=== PATIENT | female | born 1935 | race Caucasian/White ===

== ENCOUNTER → 2019-10-22 17:05 | Outpatient (BNVA) | payer MEDICARE, OTHER, SELFPAY | PROVIDERS: Family Provider Nurse Practitioner Family; PCP Nurse Practitioner Family; Visit Provider Nurse Practitioner Family | DX: N39.0 Urinary tract infection, site not specified (principal) | CPT/HCPCS: 81000 ==

== ENCOUNTER 2020-02-22 11:03 | Outpatient (CLI) | payer MEDICARE, OTHER, SELFPAY ==
--- NOTE | 2020-02-22 11:32 | CT_ITS ---
WS: [id number] CT LEFT SHOULDER, NONCONTRAST HISTORY: left shoulder pain Technique: All CT scans at [facility] use at least one of these dose optimization techniq ues: automated exposure control; mA and/or kV adjustment per patient size (includes targeted exams wh ere dose is matched to clinical indication); or iterative reconstruction. DLP: 826.75 mGycm COMPARISON: None available. Moderate narrowing AC joint. Hypertrophic bone formation soft tissue. No fracture. Normal position of the humeral head. Negative glenoid. Clavicle is intact. Visualized ribs are normal. Visualized LEFT upper lung is clear. Ectatic, mildly dilated thoracic aorta. LEFT subclavian dual lead cardiac pacer. No soft tissue mass. There is dense calcification in the axi llary fat. Also noted is moderate atrophy of the supraspinatus muscle which is probably indicative of a chronic rotator cuff tear. CT/CT shoulder LT wo con* [id number] IMPRESSION: 1. No acute fracture is identified. No displacement. 2. Moderate AC joint arthritis. 3. Chronic atrophy supraspinatus muscle. Typically related to chronic rotator cuff tear. 4. Mild ectasia thoracic aorta.
[2020-02-22] MEDS: iohexol 300 mg/mL 50 mL Btl PO (11:39)
--- NOTE | 2020-02-22 13:00 | CT_ITS ---
WS: [id number] CT ABDOMEN AND PELVIS WITH AND WITHOUT CONTRAST HISTORY: splenic lesion, abdominal, pelvic, and peristomal hernia TECHNIQUE: Unenhanced 5 mm axial imaging first performed through the abdomen. Post contrast imaging t hrough the abdomen and pelvis. Oral contrast has been provided. Sagittal and coronal reformats are s ubmitted. All CT scans at [facility] use at least one of these dose optimization techniqu es: automated exposure control; mA and/or kV adjustment per patient size (includes targeted exams whe re dose is matched to clinical indication); or iterative reconstruction. CONTRAST: Visipaque 320; 95 mL IV. DLP: 1868.23 mGycm COMPARISON: 04/26/2019 Moderate cardiomegaly and pacer wires in the RIGHT heart are present. Mild dependent changes at the l laurent bases. No hiatal hernia. Prior cholecystectomy. Visualized liver is normal. There is very mild central hepatic duct dilatation which has slightly improved since the prior study. No mass. Spleen is normal size and contains a lob ulated cystic mass with a maximum diameter of 2.5 cm. This cystic lesion has been present on several prior studies with very mild increase in size. Favor benign etiology. Atrophied pancreas. Mild common bile duct dilatation. No adrenal mass. Extensive atherosclerosis aorta with no aneurysm. Mild atroph y of each kidney. No obstruction. No ascites or adenopathy. IVC filter remains in good position. Colostomy in the LEFT lower quadrant. RIGHT hemicolectomy with ileocolic anastomosis. No interval michela nge. There is a large parastomal hernia. This has been noted on prior examinations. There is small marcel wel and colon extending into the parastomal hernia on the LEFT. Not causing any obstruction. There is marked thinning of the anterior abdominal wall with an additional hernia to the RIGHT of midline. No free fluid in the pelvis. Urinary bladder is negative. No wall thickening noted on today's examina tion. No pelvic mass or adenopathy. Increase in lumbar lordosis. L4 anterolisthesis by [address]/CT abdomen pelvis wo/w [id number] IMPRESSION: 1. Large stable LEFT lower quadrant parastomal hernia containing small bowel a nd colon. No obstruction. 2. Additional thinning of the abdominal wall with the RIGHT ventral hernia con taining GI tract and no obstruction. 3. Prior cholecystectomy. 4. RIGHT hemicolectomy with ileocolic anastomosis which is stable. 5. Lobulated low-attenuation mass in the spleen with a maximum diameter of 2.5 cm. Probably a benign cyst or hemangioma. Minimal increase in size over severa l prior years.
[2020-02-22 13:56] LABS: Blood Urea Nitrogen 13 mg/dL (8-23)
[2020-02-22] MEDS: iohexol 300 mg/mL 100 mL Btl IV (13:57)
== END 2020-02-22 11:04 | disposition home or self-care (01) ==
LOC: RADWPI 11:13
PROVIDERS: Family Provider Nurse Practitioner Family; PCP Nurse Practitioner Family; Visit Provider Nurse Practitioner Family
DX: K45.8 Other specified abdominal hernia without obstruction or gangrene (principal); D73.89 Other diseases of spleen; K43.5 Parastomal hernia without obstruction or gangrene; K43.9 Ventral hernia without obstruction or gangrene; M13.812 Other specified arthritis, left shoulder; M62.512 Muscle wasting and atrophy, not elsewhere classified, left shoulder; I77.810 Thoracic aortic ectasia
CPT/HCPCS: 73200; 74178; 82565; 84520; Q9967

== ENCOUNTER → 2020-05-18 10:47 | Outpatient (BNVA) | payer MEDICARE, OTHER, SELFPAY | PROVIDERS: Family Provider Nurse Practitioner Family; PCP Nurse Practitioner Family; Referring Provider Nurse Practitioner Family; Visit Provider Specialist | DX: M25.512 Pain in left shoulder (principal) | CPT/HCPCS: 73030 ==

== ENCOUNTER → 2020-05-30 16:45 | Outpatient (BNVA) | payer MEDICARE, OTHER, SELFPAY | PROVIDERS: Family Provider Nurse Practitioner Family; PCP Nurse Practitioner Family; Visit Provider Nurse Practitioner Family | DX: D64.9 Anemia, unspecified (principal); N39.0 Urinary tract infection, site not specified; A49.9 Bacterial infection, unspecified; E55.9 Vitamin D deficiency, unspecified; R53.83 Other fatigue; R41.82 Altered mental status, unspecified; Z79.899 Other long term (current) drug therapy | CPT/HCPCS: 80053; 80061; 82306; 82607; 82746; 83550; 84443; 85025 ==

== ENCOUNTER → 2020-05-31 16:45 | Outpatient (BNVA) | payer MEDICARE, OTHER, SELFPAY | PROVIDERS: Family Provider Nurse Practitioner Family; PCP Nurse Practitioner Family; Visit Provider Nurse Practitioner Family | DX: D64.9 Anemia, unspecified (principal); N39.0 Urinary tract infection, site not specified; A49.9 Bacterial infection, unspecified; R53.83 Other fatigue; Z79.899 Other long term (current) drug therapy; R41.82 Altered mental status, unspecified; E55.9 Vitamin D deficiency, unspecified | CPT/HCPCS: 80053; 81003; 83036 ==

== ENCOUNTER → 2020-06-05 16:32 | Outpatient (BNVA) | payer MEDICARE, OTHER, SELFPAY | PROVIDERS: Family Provider Nurse Practitioner Family; PCP Nurse Practitioner Family; Visit Provider Nurse Practitioner Family | DX: N39.0 Urinary tract infection, site not specified (principal) | CPT/HCPCS: 81003 ==

== ENCOUNTER → 2020-08-08 08:55 | Outpatient (BNVA) | payer MEDICARE, OTHER, SELFPAY | PROVIDERS: Family Provider Nurse Practitioner Family; PCP Nurse Practitioner Family; Visit Provider Nurse Practitioner Family | DX: K21.9 Gastro-esophageal reflux disease without esophagitis (principal); F33.1 Major depressive disorder, recurrent, moderate; R60.0 Localized edema; E78.2 Mixed hyperlipidemia; D64.9 Anemia, unspecified; E55.9 Vitamin D deficiency, unspecified; G45.9 Transient cerebral ischemic attack, unspecified; I63.9 Cerebral infarction, unspecified | CPT/HCPCS: 80053; 81003; 83735; 83880; 85025 ==

== ENCOUNTER → 2020-08-10 10:37 | Outpatient (BNVA) | payer MEDICARE, OTHER, SELFPAY | PROVIDERS: Family Provider Nurse Practitioner Family; PCP Nurse Practitioner Family; Visit Provider Nurse Practitioner Family | DX: R53.83 Other fatigue (principal) | CPT/HCPCS: 81003 ==

== ENCOUNTER 2020-08-15 18:31 | Emergency (ER) | payer MEDICARE, OTHER, SELFPAY ==
[2020-08-15 18:33] VITALS: PULSE 65; RESP 18; TEMP 36.7; O2SAT 96; BMI 43.6
--- NOTE | 2020-08-15 18:36 | CTR_ITS ---
PROCEDURE INFORMATION: Exam: CT Head Without Contrast Exam date and time: 08/15/2020 6:39 PM Age: 85 years old Clinical indication: Speech disturbance; Additional info: TIA TECHNIQUE: Imaging protocol: Computed tomography of the head without contrast. Radiation optimization: All CT scans at this facility use at least one of these dose optimization techniques: automated exposure control; mA and/or kV adjustment per patient size (includes targeted exams where dose is matched to clinical indication); or iterative reconstruction. Other technique: STROKE PROTOCOL was implemented. COMPARISON: CT head wo con* [id number] 12/09/2014 4:58 PM RADIATION DOSE METRICS: Total DLP (mGy-cm): 891.28 FINDINGS: Brain: There is moderate cortical atrophy. Low-density changes in the white matter are consistent with nonspecific small vessel chronic ischemic change. There is no intracranial mass, hemorrhage or edema. Cerebral ventricles: No ventriculomegaly. Bones/joints: Unremarkable. No acute fracture. Paranasal sinuses: Visualized sinuses are unremarkable. No fluid levels. Mastoid air cells: Visualized mastoid air cells are well aerated. Soft tissues: Unremarkable. CT/CT head wo con* [id number] IMPRESSION: No acute findings. No significant change from 12/09/2014. ASSESSMENT: ASPECTS ([place] Stroke Program Early CT Score) is 10. Radiation Dose CTDIVOL = (mGy): DLP = 891.28 (mGy-cm)
--- NOTE | 2020-08-15 18:36 | ECG_ITS ---
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 Measurements Intervals [place] Rate: 62 P: 95 MO: 298 QRS: -72 QRSD: 172 T: 97 QT: 475 QTc: 484 Interpretive Statements ELECTRONIC ATRIAL PACEMAKER ELECTRONIC VENTRICULAR PACEMAKER ABNORMAL RHYTHM ECG Compared to ECG 06/04/2018 22:47:07 Sinus rhythm no longer present Right bundle-branch block no longer present Electronically Signed On 08-15-2020 19:56:25 REGENERATOR OPERATOR by Renée Shine M.D. [id number]
--- NOTE | 2020-08-15 18:36 | XR_ITS ---
WS: [id number] Portable AP upright chest, 08/15/2020 Clinical Data: tia Comparison: Portable chest, 10/06/2018 Findings: No nodules, masses or effusions are seen. The heart is enlarged. The pulmonary vascularity is not increased. No pneumonia or pneumothorax is seen. There is atelectasis over the right diaphragm . The permanent pacemaker remains in the same position with the generator in the left axilla. There i s a left axillary lymph node. The aortic arch and descending aorta show calcification and tortuosity. XR/XR chest 1V portable [id number] Impression: Cardiomegaly and atherosclerosis.
--- NOTE | 2020-08-15 18:37 | ED_ITS ---
HPI - Neuro Symptoms/Deficit General: Chief Complaint: Neuro Symptoms/Deficit Stated Complaint: STOKE LIKE SYMPTOMS Time Seen by Provider: 08/15/20 18:34 Source: patient and EMS Mode of arrival: EMS Limitations: no limitations History of Present Illness: HPI Narrative: 85-year-old female states today roughly starting 2 PM she was having some expressive aphasia. States lasted r oughly 2 hours and is since completely resolved. She has no complaints at this time. She states she feels fine and walked to the bed. She states she was recently diagnosed with a urinary tract infection and started Cipro yesterday. She denies any headache or fever. She has had a history of TIAs in the past and is on aspirin. Denies any weakness. Associated symptoms: Deny chest pain, nausea or vomiting Review of Systems Const: Denies: fever(s), chills, body aches or change in appetite Eyes: Denies: blurry vision or eye discomfort ENMT: Denies: throat pain or dental pain Card: Denies: chest pain Resp: Denies: dyspnea GI: Denies: abdominal pain, nausea, vomiting or diarrhea : Denies: dysuria Musc: Denies: neck pain or back pain Skin/Breast: Denies: rash Neuro: Reports: difficulty communicating thoughts Psych: Denies: depression Mike/Lymph: Denies: easy bruising All/Imm: Denies: urticaria PFSH ED PFSH: Medical History (Updated 08/15/20 @ 20:37 by Aliyah Campa MD) Abdominal hernia Anemia Anxiety and depression Bladder wall thickening Chronic anticoagulation CVA (cerebrovascular accident) Essential hypertension Fatigue Generalized weakness GERD (gastroesophageal reflux disease) History of pulmonary embolism Intertrigo Mental status alteration Mixed hyperlipidemia Osteoporosis Polyneuropathy Rotator cuff tear arthropathy of left shoulder Spinal stenosis Splenic lesion UTI (urinary tract infection), bacterial Vitamin D deficiency Surgical History S/P colostomy S/P hernia repair S/P IVC filter Social History Current occupation: retired/disabled NIH stroke score NIHSS: Level Of Consciousness - 1a: 0 Level Of Consciousness Questions - 1b: Both Correct Level Of Consciousness Commands - 1c: Both Correct Best Gaze - 2: Normal Visual Werner - 3: No Visual Loss Facial Palsy - 4: Normal Motor Arm Right - 5: No Drift Motor Arm Left - 5: No Drift Motor Leg Right - 6: No Drift Motor Leg Left - 6: No Drift Limb Ataxia - 7: Absent Sensory - 8: Normal Best Language - 9: No Aphasia Dysarthia - 10: Normal Extinction And Inattention - 11: 0 Score: Total Score: 0 Physical Exam Const: COMMON NORMALS: no acute distress, patient oriented x3, healthy appearing and alert ORIENTATION/CONSCIOUSNESS: Yes oriented to person, Yes oriented to place and Yes oriented to time HENMT: COMMON NORMALS: normocephalic and atraumatic HEAD & SCALP: normocephalic and atraumatic Eye: COMMON NORMALS: Equal, round and reactive pupils present and EOMs intact bilaterally PUPIL: Yes Equal, round and reactive pupils present Neck/C-Spine: COMMON NORMALS: full ROM and supple Chest: COMMONS NORMALS: normal inspection of the chest and normal palpation of entire chest wall Resp: COMMON NORMALS: normal respiratory effort, No retractions, No use of accessory muscles and clear to auscultation bilaterally AUSCULTATION: clear to auscultation bilaterally Cardio: COMMON NORMALS: regular rate, regular rhythm and No murmurs present (Cardio) RATE: regular rate RHYTHM: regular rhythm GI: COMMON NORMALS: Normal to inspection, nondistended, normoactive bowel sounds present, Soft to palpation, non-tender and no masses PALPATION: Yes Soft to palpation Extremity: COMMON NORMALS: normal to inspection and full ROM Neuro: COMMON NORMALS: patient oriented x3, moves all extremities and no focal motor deficits SENSORIUM/ORIENTATION: Yes alert, Yes oriented to person, Yes oriented to place and Yes oriented to time CRANIAL NERVES: Yes CN normal except as noted SPEECH: speech normal GAIT: Yes Normal gait present MOTOR EXAM: 5/5 motor strength present throughout PUPIL EXAM: Normal pupillary reactivity/response: bilateral Psych: COMMON NORMALS: mental status grossly normal, Normal thought process present and cooperative THOUGHT PROCESS: Normal thought process present Skin: COMMON NORMALS: no rashes or lesions noted and no wounds GENERAL SKIN EXAM: no rashes or lesions noted Course Vital Signs: Vital signs: Vital Signs Temperature 98.1 F 08/15/20 18:33 Pulse Rate 62 08/15/20 20:44 Respiratory Rate 18 08/15/20 18:33 Blood Pressure 135/64 08/15/20 20:44 Pulse Oximetry 96 08/15/20 20:44 MDM - Neuro Symptoms/Deficit MDM Narrative: Medical decision making narrative: Patient presents here with likely TIA. She has no neurologic symptoms here in her neuro exam here is davey ign. Her CT head is normal. I did offer patient admission but states she feels much improved would like to go home. She is already on aspirin is to continue. Patient's continue antibiotic for UTI. She is to follow-up with her PCP in 2 to 4 days return if worsening. She understands agrees the plan. Lab Data: Labs: Lab Results 08/15/20 08/15/20 08/15/20 Range/Units 18:30 18:30 18:30 WBC 5.8 (4.0-10.0) 10^3/ uL RBC 4.46 (4.1-5.3) 10^6/u L Hgb 12.9 (11.5-15.3) g/dL Hct 41.7 (37.0-47.0) % MCV 93.5 (81-99) fL MCH 28.9 (28.0-34.0) pg MCHC 30.9 (30.0-36.0) g/dL RDW 13.9 (12.1-15.1) % Plt Count 283 (130-400) 10^3/c mm MPV 10.4 (7.4-10.4) fL Neut % (Auto) 64.8 % Lymph % (Auto) 22.8 % [place] % (Auto) 9.9 % Eos % (Auto) 1.7 % Baso % (Auto) 0.5 % Neut # (Auto) 3.74 (1.8-7.7) 10^3/u L Lymph # (Auto) 1.3 (0.8-4.8) 10^3/u L [place] # (Auto) 0.6 (0.2-0.9) 10^3/u L Eos # (Auto) 0.1 (0.0-0.8) 10^3/u L Baso # (Auto) 0.0 (0.0-0.1) 10^3/u L Nucleated RBC % (a uto) 0 % Nucleated RBCs # 0.0 /100WBC PT 14.40 (12.1-14.9) SECO NDS INR 1.08 (0.8-1.2) Sodium 139 (136-145) mmol/L Potassium 4.0 (3.5-5.1) mmol/L Chloride 99 (98-107) mmol/L Carbon Dioxide 32 H (22-29) mmol/L Anion Gap 12.0 (5-19) BUN 18 (8-23) mg/dL Creatinine 0.8 (0.5-0.9) mg/dL GFR Calculation Not Reportable Glucose 119 H (65-115) mg/dL Calculated Osmolal ity 291 (285-295) mOsm/k g Calcium 9.7 (8.5-10.5) mg/dL Total Bilirubin 0.2 (0.15-1.2) mg/dL AST 39 H (0-32) U/L ALT 14 (0-33) U/L Alkaline Phosphata se 159 H (35-105) IU/L Total Protein 6.7 (6.6-8.7) g/dL Albumin 3.9 (3.5-5.2) g/dL Globulin 2.8 (1.3-4.6) g/dL Imaging Data^: CXR: Attestation: I personally reviewed and interpreted this imaging study as follows: My impression: no acute abnormality CT Head: Attestation: I personally reviewed and interpreted this imaging study as follows: Radiologist's impression: [address] [address] [address] Scan Report Signed Patient: Erin Aguilar Unit #: [id number] : 1935 Age/Sex: 85 / F ADM Date: 08/15/20 Loc: ER Room/Bed: Attending Dr: Ordering Provider/Ordering MD: Aliyah Campa MD Date of Service: 08/15/20 Procedure(s): CT head wo con* [id number] Accession Number(s): [id number] Report Number: [id number] PROCEDURE INFORMATION: Exam: CT Head Without Contrast Exam date and time: 08/15/2020 6:39 PM Age: 85 years old Clinical indication: Speech disturbance; Additional info: TIA TECHNIQUE: Imaging protocol: Computed tomography of the head without contrast. Radiation optimization: All CT scans at this facility use at least one of these dose optimization techniques: automated exposure control; mA and/or kV adjustment per patient size (includes targeted exams where dose is matched to clinical indication); or iterative reconstruction. Other technique: STROKE PROTOCOL was implemented. COMPARISON: CT head wo con* [id number] 12/09/2014 4:58 PM RADIATION DOSE METRICS: Total DLP (mGy-cm): 891.28 FINDINGS: Brain: There is moderate cortical atrophy. Low-density changes in the white matter are consistent with nonspecific small vessel chronic ischemic change. There is no intracranial mass, hemorrhage or edema. Cerebral ventricles: No ventriculomegaly. Bones/joints: Unremarkable. No acute fracture. Paranasal sinuses: Visualized sinuses are unremarkable. No fluid levels. Mastoid air cells: Visualized mastoid air cells are well aerated. Soft tissues: Unremarkable. CT/CT head wo con* [id number] IMPRESSION: No acute findings. No significant change from 12/09/2014. EKG Data^: EKG 1: Attestation: I personally reviewed and interpreted this EKG as follows: EKG interpretation date: 08/15/20 EKG interpretation time: 18:59 Interpretation: atrial paced hr [address] or t wave abnormalities qrs 172 qtc 480 Discharge Plan Discharge Patient Disposition: Home Clinical Impression: TIA (transient ischemic attack) Condition: Stable Prescriptions: No Action hydrocodone-acetaminophen 10-325 mg tablet PO RF: 0 Narcan 4 mg/actuation spray,non-aerosol INTRANASAL RF: 0 metoprolol succinate 25 mg tablet extended release 24 hr PO RF: 0 miscellaneous medical supply [facility] 1 each miscellaneous DAILY 90 Days Qty: 1 RF: 3 miscellaneous medical supply [facility] 1 each miscellaneous DAILY 365 Days Qty: 1 RF: 4 simvastatin 40 mg tablet 40 mg PO DAILY Qty: 30 RF: 2 cholecalciferol (vitamin D3) 1,250 mcg (50,000 unit) capsule 50,000 unit PO DAILY 90 Days Qty: 12 RF: 2 pantoprazole [Protonix] 40 mg tablet,delayed release (DR/EC) 40 mg PO DAILY Qty: 30 RF: 2 escitalopram oxalate [Lexapro] 20 mg tablet 20 mg PO DAILY Qty: 90 RF: 1 lisinopril 10 mg tablet 10 mg PO DAILY Qty: 30 RF: 5 Xarelto 20 mg tablet 20 mg PO DAILY Qty: 90 RF: 0 pregabalin [Lyrica] 100 mg capsule 100 mg PO BID 30 Days Qty: 60 RF: 2 alendronate 70 mg tablet 70 mg PO .weekly Qty: 4 RF: 2 ciprofloxacin HCl [Cipro] 250 mg tablet 250 mg PO BID 5 Days Qty: 10 RF: 0 Discharge Orders: Discharge ED (Routine); Ordered 08/15/20 Ordered By: Aliyah Campa Referrals: RAJEEV Greene, GLASS TINTER [Primary Care Provider] - 1-3 days Discharge Diet: Advance as tolerated Discharge Activity: Resume usual activity Patient Instructions: Transient Ischemic Attack (ED) Coding Level of Care Code ED It Sales Executive for Rosa Fwlast Exam Comprehensive
[2020-08-15 18:53] LABS: Basophils % 0.5 %; Eosinophils # 0.1 10^3/uL (0.0-0.8); Eosinophils % 1.7 %; Hematocrit 41.7 % (37.0-47.0); Hemoglobin 12.9 g/dL (11.5-15.3); Lymphocytes # 1.3 10^3/uL (0.8-4.8); Lymphocytes % 22.8 %; Mean Corpuscular HGB Conc 30.9 g/dL (30.0-36.0); Mean Corpuscular Hemoglobin 28.9 pg (28.0-34.0); Mean Corpuscular Volume 93.5 fL (81-99); Mean Platelet Volume 10.4 fL (7.4-10.4); Monocytes # 0.6 10^3/uL (0.2-0.9); Monocytes % 9.9 %; Neutrophils # 3.74 10^3/uL (1.8-7.7); Neutrophils % 64.8 %; Nucleated Red Blood Cells % 0 %; Platelet Count 283 10^3/cmm (130-400); Red Blood Count 4.46 10^6/uL (4.1-5.3); Red Cell Distribution Width 13.9 % (12.1-15.1); White Blood Count 5.8 10^3/uL (4.0-10.0)
[2020-08-15 18:56] VITALS: BP 204/97; PULSE 61; O2SAT 96
[2020-08-15] MEDS: labetalol 5 mg/mL SDV 20mL 10 MG IVP (19:53)
[2020-08-15 19:54] VITALS: BP 164/115; PULSE 62; O2SAT 94
[2020-08-15 19:56] LABS: Alanine Aminotransferase 14 U/L (0-33); Albumin Level 3.9 g/dL (3.5-5.2); Alkaline Phosphatase 159 IU/L (35-105); Aspartate Amino Transferase 39 U/L (0-32); Blood Urea Nitrogen 18 mg/dL (8-23); Calcium 9.7 mg/dL (8.5-10.5); Carbon Dioxide 32 mmol/L (22-29); Chloride 99 mmol/L (98-107); Globulin 2.8 g/dL (1.3-4.6); Glucose 119 mg/dL (65-115); Osmolality Calculated 291 mOsm/kg (285-295); Sodium 139 mmol/L (136-145); Total Bilirubin 0.2 mg/dL (0.15-1.2); Total Protein 6.7 g/dL (6.6-8.7)
[2020-08-15 20:33] LABS: INR 1.08 (0.8-1.2)
[2020-08-15 20:44] VITALS: BP 135/64; PULSE 62; O2SAT 96
== END 2020-08-15 20:45 | disposition home or self-care (01) ==
PROVIDERS: Emergency Provider Emergency Medicine; PCP Nurse Practitioner Family
DX: G45.9 Transient cerebral ischemic attack, unspecified (principal); Z86.73 Personal history of transient ischemic attack (TIA), and cerebral infarction without residual deficits; I10 Essential (primary) hypertension; E78.2 Mixed hyperlipidemia
CPT/HCPCS: 12345; 70450; 71045; 80053; 85025; 85610; 93005; 96374; 99283; J3490

== ENCOUNTER → 2020-08-17 11:26 | Outpatient (BNVA) | payer MEDICARE, OTHER, SELFPAY | PROVIDERS: PCP Nurse Practitioner Family; Visit Provider Nurse Practitioner Family | DX: R53.83 Other fatigue (principal) | CPT/HCPCS: 81003 ==

== ENCOUNTER → 2020-09-15 11:48 | Outpatient (BNVA) | payer MEDICARE, OTHER, SELFPAY | PROVIDERS: PCP Nurse Practitioner Family; Visit Provider Nurse Practitioner Family | DX: N39.0 Urinary tract infection, site not specified (principal); A49.9 Bacterial infection, unspecified | CPT/HCPCS: 81003 ==

== ENCOUNTER → 2021-02-20 13:36 | Outpatient (BNVA) | payer MEDICARE, OTHER, SELFPAY | PROVIDERS: PCP Nurse Practitioner Family; Visit Provider Nurse Practitioner Family | DX: D64.9 Anemia, unspecified (principal); E78.2 Mixed hyperlipidemia; R53.83 Other fatigue; E55.9 Vitamin D deficiency, unspecified; L03.90 Cellulitis, unspecified; N39.0 Urinary tract infection, site not specified; Z79.899 Other long term (current) drug therapy | CPT/HCPCS: 80053; 80061; 81003; 82306; 82607; 82728; 82746; 83036; 83550; 84439; 84443; 85025 ==

== ENCOUNTER → 2021-03-29 12:30 | Outpatient (BNVA) | payer MEDICARE, OTHER, SELFPAY | PROVIDERS: PCP Nurse Practitioner Family; Visit Provider Nurse Practitioner Family | DX: E55.9 Vitamin D deficiency, unspecified (principal); R53.83 Other fatigue; D64.9 Anemia, unspecified; Z79.899 Other long term (current) drug therapy | CPT/HCPCS: 80053; 82607; 82728; 82746; 83036; 83550; 84207; 84425; 84439; 84443; 85025 ==

== ENCOUNTER → 2021-05-08 10:26 | Outpatient (BNVA) | payer MEDICARE, OTHER, SELFPAY | PROVIDERS: PCP Nurse Practitioner Family; Visit Provider Nurse Practitioner Family | DX: M50.30 Other cervical disc degeneration, unspecified cervical region (principal); K21.9 Gastro-esophageal reflux disease without esophagitis | CPT/HCPCS: 72040 ==

== ENCOUNTER → 2021-05-09 11:14 | Outpatient (BNVA) | payer MEDICARE, OTHER, SELFPAY | PROVIDERS: PCP Nurse Practitioner Family; Visit Provider Nurse Practitioner Family | DX: R53.83 Other fatigue (principal) | CPT/HCPCS: 81003 ==

== ENCOUNTER 2021-05-22 11:14 | Outpatient (CLI) | payer MEDICARE, OTHER, SELFPAY ==
--- NOTE | 2021-05-22 11:00 | CT_ITS ---
WS: [id number] CTA HEAD AND NECK TECHNIQUE: Contrast enhanced CTA of the head and neck with coronal and sagittal reformatted images an d maximum intensity projection (MIP) images. NASCET criteria utilized. CLINICAL INFORMATION: G44.53 - Primary thunderclap headache COMPARISON: None. DLP: 1093.[address] scans at [facility] use at least one of these dose optimization techniques: automated e xposure control; mA and/or kV adjustment per patient size (includes targeted exams where dose is matc hed to clinical indication); or iterative reconstruction. FINDINGS: RIGHT: Right common carotid artery is patent. No significant right ICA stenosis. ICA is patent to the skull base. Retropharyngeal course right cervical ICA. Moderate cavernous carotid calcification. LEFT: Left common carotid artery is patent. Tortuous left cervical ICA. Moderate calcified atheromato us disease left carotid bulb extending into the ICA. No significant left ICA stenosis. Left ICA is pa tent to the skull base. Moderate cavernous carotid calcification INTRACRANIAL CTA: Right dominant vertebral artery. Smaller but patent left vertebral artery. Basilar artery is patent. Normal vascularity to the METAL PUNCH PRESS OPERATOR territory bilaterally. Both ICAs are patent at the skull base. Cavernous carotid and supraclinoid calcification. No flow-patel iting stenosis. Normal vascularity to the LEEANN and MCA territories bilaterally. Normal variant right u nilateral fenestrated A1 segment. Normal vascularity to the MCA territories bilaterally. Normal MCA t rifurcations bilaterally. Multinodular thyroid with right thyroid and thyroid isthmus nodules. Largest measures approximately 1 .5 cm along the isthmus. This can be followed up with thyroid ultrasound. Lung apices are well aerate d. Cardiac pacer. Mucosal thickening mastoid air cells. Paranasal sinuses are well aerated. Normal pa rapharyngeal fat. Straightening of the normal cervical lordosis. Slight reversal of the normal cervic al lordosis. Mild spondylitic changes. Normal visualized dural venous sinuses. CT/CT angio headneck* [id number] IMPRESSION: 1. Moderate calcified atheromatous disease left carotid bulb without significa nt stenosis. 2. No significant right ICA stenosis. Retropharyngeal course right cervical IC A. 3. Right dominant vertebral artery. Both vertebral arteries are patent. 4. No flow-limiting intracranial stenosis or aneurysm. 5. Multinodular thyroid. This can be followed up with ultrasound. 6. No other significant findings.
--- NOTE | 2021-05-22 11:00 | CT_ITS ---
WS: [id number] CT HEAD TECHNIQUE: Noncontrast CT of the head obtained from the skullbase to the vertex. CLINICAL INFORMATION: G44.53 - Primary thunderclap headache COMPARISON: August 15, 2020 DLP: 925.[address] scans at [facility] use at least one of these dose optimization techniques: automated e xposure control; mA and/or kV adjustment per patient size (includes targeted exams where dose is matc hed to clinical indication); or iterative reconstruction. FINDINGS: No evidence of intracranial hemorrhage or mass effect. Ventricular system and basal cisterns are brock nt. Moderate small vessel changes with moderate parenchymal volume loss. Chronic lacunar infarcts in the bilateral basal ganglia and thalami. Chronic lacunar infarcts in the periventricular white matter . Intracranial vascular calcification. No extra-axial fluid collections. No evidence of mass or mass effect. Parietal sinuses are well aerated. Mild mucosal thickening mastoid air cells. CT/CT head wo con* [id number] IMPRESSION: 1. No evidence of intracranial hemorrhage or mass effect. 2. Moderate small vessel changes. Moderate parenchymal volume loss. 3. Intracranial vascular calcification. 4. Chronic lacunar infarcts described above. 5. No acute intracranial findings.
[2021-05-22] MEDS: iohexol 350 mg/mL 100 mL Btl IV (12:29)
== END 2021-05-22 11:15 | disposition home or self-care (01) ==
PROVIDERS: PCP Nurse Practitioner Family; Visit Provider Family Medicine
DX: G44.53 Primary thunderclap headache (principal); I67.2 Cerebral atherosclerosis; E04.2 Nontoxic multinodular goiter; I63.9 Cerebral infarction, unspecified
CPT/HCPCS: 70450; 70496; 70498; Q9967

== ENCOUNTER → 2021-05-25 08:16 | Outpatient (BNVA) | payer MEDICARE, OTHER, SELFPAY | PROVIDERS: PCP Nurse Practitioner Family; Visit Provider Family Medicine | DX: G44.53 Primary thunderclap headache (principal); Z79.899 Other long term (current) drug therapy | CPT/HCPCS: 80053; 83036; 84443; 85025; 85651 ==

== ENCOUNTER 2021-08-23 16:49 | Emergency (ER) | payer MEDICARE, OTHER, SELFPAY ==
[2021-08-23] VITALS (35 sets, daily range): BP systolic 137–163; BP diastolic 68–75; PULSE 60–92; RESP 15–29; TEMP 36.9; O2SAT 78–95; BMI 43.4
--- NOTE | 2021-08-23 17:31 | ED_ITS ---
HPI - Weakness General: Chief complaint: Weakness Stated complaint: COVID, WEAKNESS Time Seen by Provider: 08/23/21 17:16 Source: patient Limitations: no limitations History of Present Illness: This patient complains of generalized weakness and malaise and not feeling well over the last several days. She has had a mild cough which has been generally nonproductive. She lives with her grandson who is Covid positive. 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 She has had associated mild headache as well as body aches and chills. She is attempting to eat and drink but has been eating and drinking less than normal. She has a history having bowel resection as well is having an ostomy as result of inability to perform anastomosis after bowel resection. She also has a history of coronary artery disease and has had a prior pacemaker and is followed by cardiology in [place]. She denies any ongoing chest pain. She does not wear oxygen and has no history of COPD and is nontobacco user. MD Complaint: generalized weakness and lack of energy Associated symptoms: Reports chills, headache(s) and myalgias; Denies chest pain, dysuria, easy bruising, nausea or vomiting Review of Systems Const: Reports: chills, change in appetite and fatigue Eyes: Denies: change in vision or blurry vision ENMT: Reports: nasal congestion; Denies: throat pain or odynophagia Card: Denies: chest pain, palpitations, irregular heart rhythm or edema Resp: Reports: non-productive cough GI: Denies: abdominal pain, nausea or vomiting : Denies: flank pain, difficulty voiding, dysuria or urinary frequency Musc: Denies: back pain or extremity pain Skin/Breast: Denies: rash, pruritus or erythema Neuro: Reports: headache(s); Denies: numbness in extremities, weakness in extremities, lack of coordination, difficulty walking, dizziness or Slurred speech present Endo: Denies: polyuria or polydipsia Mike/Lymph: Denies: easy bruising or easy bleeding [facility] PFSH: Medical History Abdominal hernia Acute UTI (urinary tract infection) Anemia Anxiety and depression Bladder wall thickening Cellulitis Chronic anticoagulation CVA (cerebrovascular accident) DDD (degenerative disc disease), cervical Essential hypertension Essential hypertension Fatigue Generalized weakness GERD (gastroesophageal reflux disease) History of pulmonary embolism Intertrigo Left ankle sprain Mental status alteration Mixed hyperlipidemia Osteoporosis Polyneuropathy Rotator cuff tear arthropathy of left shoulder Shakiness Spinal stenosis Splenic lesion Upper respiratory infection UTI (urinary tract infection), bacterial Vitamin D deficiency Yeast vaginitis Surgical History S/P colostomy S/P hernia repair S/P IVC filter Social History Smoking and tobacco status: never smoked Current occupation: retired/disabled Physical Exam Narrative: EXAM NARRATIVE: Appears ill but is able to complete sentences in a goal-directed fashion and interacts normally. Const: COMMON NORMALS: patient oriented x3 and alert GENERAL APPEARANCE: cooperative HENMT: COMMON NORMALS: normocephalic, Normal nasal mucous membranes and turbinates present, moist oral mucous membranes (Mask per protocol) and oropharynx normal HEAD & SCALP: normocephalic NOSE: Normal nasal mucous membranes and turbinates present Eye: COMMON NORMALS: Equal, round and reactive pupils present, EOMs intact bilaterally and no scleral icterus PUPIL: Yes Equal, round and reactive pupils present Neck/C-Spine: COMMON NORMALS: full ROM, no lymphadenopathy, supple, no JVD and No carotid bruits Chest: COMMONS NORMALS: normal inspection of the chest and normal palpation of entire chest wall Resp: COMMON NORMALS: No retractions and No use of accessory muscles AUSCULTATION: rhonchi upper bilaterally Cardio: COMMON NORMALS: no JVD, regular rate, No murmurs present (Cardio) and Peripheral pulses 2+ throughout RATE: regular rate PERIPHERAL PULSES: Peripheral pulses 2+ throughout GI: COMMON NORMALS: Normal to inspection, nondistended, normoactive bowel sounds present (Ostomy left mid abdomen), Soft to palpation and non-tender PALPATION: Yes Soft to palpation Neuro: COMMON NORMALS: patient oriented x3, moves all extremities, no focal motor deficits and no sensory deficits noted SENSORIUM/ORIENTATION: Yes alert Psych: COMMON NORMALS: mental status grossly normal Skin: COMMON NORMALS: no rashes or lesions noted, turgor normal and no jaundice GENERAL SKIN EXAM: no rashes or lesions noted and turgor normal Course Vital Signs: Vital signs: Vital Signs Temperature 98.5 F 08/23/21 17:05 Pulse Rate 61 08/23/21 20:01 Respiratory Rate 22 H 08/23/21 20:01 Blood Pressure 137/73 08/23/21 20:01 Pulse Oximetry 91 08/23/21 20:01 MDM - Weakness Medical Decision Making Patient is COVID-19 positive. She has been hydrated in the emergency department. Her biomarkers are negative for any signs of cardiac ischemia. Her chest x-ray is also reassuring. The patient is clinically stable taking fluids well. She lives with grandson who can provide support for her at home as well. I discussed expected course with the patient in detail. Also discussed return precautions. She is stable to be discharged home at this time. Current recommendations do not favor use of monoclonal antibodies for what is presumably all micron variants of COVID-19 therefore these will not be entertained in this case. Medical Records I reviewed the patient's medical records. Lab Data I reviewed the patient's lab results. : 08/23/21 17:36 08/23/21 17:36 Radiology Impressions Chest X-Ray 08/23/21 17:32 IMPRESSION: No acute findings. Laboratory Results WBC 5.8 10^3/uL (4.0-10.0) 08/23/21 17:36 RBC 4.85 10^6/uL (4.1-5.3) 08/23/21 17:36 Hgb 14.2 g/dL (11.5-15.3) 08/23/21 17:36 Hct 45.3 % (37.0-47.0) 08/23/21 17:36 MCV 93.4 fl (81-99) 08/23/21 17:36 MCH 29.3 pg (28.0-34.0) 08/23/21 17:36 MCHC 31.3 g/dL (30.0-36.0) 08/23/21 17:36 RDW 14.8 % (12.1-15.1) 08/23/21 17:36 Plt Count 225 10^3/cmm (130-400) 08/23/21 17:36 MPV 10.1 fL (7.4-10.4) 08/23/21 17:36 Neut % (Auto) 79.8 % 08/23/21 17:36 Lymph % (Auto) 12.1 % 08/23/21 17:36 Charles % (Auto) 6.9 % 08/23/21 17:36 Eos % (Auto) 0.5 % 08/23/21 17:36 Baso % (Auto) 0.0 % 08/23/21 17:36 Neut # (Auto) 4.61 10^3/uL (1.8-7.7) 08/23/21 17:36 Lymph # (Auto) 0.7 10^3/uL (0.8-4.8) L 08/23/21 17:36 Charles # (Auto) 0.4 10^3/uL (0.2-0.9) 08/23/21 17:36 Eos # (Auto) 0.0 10^3/uL (0.0-0.8) 08/23/21 17:36 Baso # (Auto) 0.0 10^3/uL (0.0-0.1) 08/23/21 17:36 Nucleated RBC % (auto) 0 % 08/23/21 17:36 Nucleated RBCs # 0.0 /100WBC 08/23/21 17:36 Sodium 133 mmol/L (136-145) L 08/23/21 17:36 Potassium 4.0 mmol/L (3.5-5.1) 08/23/21 17:36 Chloride 94 mmol/L (98-107) L 08/23/21 17:36 Carbon Dioxide 24 mmol/L (22-29) 08/23/21 17:36 Anion Gap 19.0 (5-19) 08/23/21 17:36 BUN 25 mg/dL (8-23) H 08/23/21 17:36 Creatinine 0.9 mg/dL (0.5-0.9) 08/23/21 17:36 GFR Calculation Not Reportable 08/23/21 17:36 Glucose 125 mg/dL (65-115) H 08/23/21 17:36 Calculated Osmolality 282 mOsm/kg (285-295) L 08/23/21 17:36 Calcium 10.2 mg/dL (8.5-10.5) 08/23/21 17:36 Total Bilirubin 0.2 mg/dL (0.15-1.2) 08/23/21 17:36 AST 36 U/L (0-32) H 08/23/21 17:36 ALT 16 U/L (0-33) 08/23/21 17:36 Alkaline Phosphatase 131 IU/L (35-105) H 08/23/21 17:36 Troponin T Gen 5 ng/L 6 ng/L (0-10) 08/23/21 17:36 Total Protein 7.1 g/dL (6.6-8.7) 08/23/21 17:36 Albumin 3.8 g/dL (3.5-5.2) 08/23/21 17:36 Globulin 3.3 g/dL (1.3-4.6) 08/23/21 17:36 SARS-CoV-2 Ag (Rapid) Positive (Negative) H 08/23/21 17:36 Imaging Data CXR: Radiologist's impression: No acute disease. EKG Data EKG 1: I personally reviewed and interpreted this EKG as follows: Interpretation: EKG has a ventricular rate of 60 bpm. Consistent with a paced rhythm. Discharge Plan Discharge Patient Disposition: Home Clinical Impression: COVID-19 Condition: Stable Prescriptions: No Action hydrocodone-acetaminophen 10-325 mg tablet PO 0RF Narcan 4 mg/actuation spray,non-aerosol INTRANASAL 0RF miscellaneous medical supply Misc 1 each miscellaneous DAILY 90 Days Qty: 1 3RF miscellaneous medical supply Misc 1 each miscellaneous DAILY 365 Days Qty: 1 4RF Rx Instructions: Hospital bed mattress - Bariatric pregabalin [Lyrica] 100 mg capsule 100 mg PO BID 30 Days Qty: 60 2RF cholecalciferol (vitamin D3) 1,250 mcg (50,000 unit) capsule 50,000 unit PO DAILY 90 Days Qty: 12 2RF ferrous gluconate 324 mg (38 mg iron) tablet 324 mg PO DAILY 30 Days Qty: 30 2RF pantoprazole 40 mg tablet,delayed release (DR/EC) See Rx Instructions .ROUTE .COMPLEX Qty: 90 0RF Dose Instruction: TAKE 1 TABLET BY MOUTH DAILY Rx Instructions: TAKE 1 TABLET BY MOUTH DAILY Xarelto 20 mg tablet See Rx Instructions .ROUTE .COMPLEX Qty: 90 1RF Dose Instruction: TAKE 1 TABLET BY MOUTH DAILY MUST TAKE WITH EVENING MEAL Rx Instructions: TAKE 1 TABLET BY MOUTH DAILY MUST TAKE WITH EVENING MEAL simvastatin 40 mg tablet See Rx Instructions .ROUTE .COMPLEX Qty: 90 1RF Dose Instruction: TAKE 1 TABLET BY MOUTH DAILY Rx Instructions: TAKE 1 TABLET BY MOUTH DAILY mirtazapine 15 mg tablet See Rx Instructions .ROUTE .COMPLEX Qty: 30 0RF Dose Instruction: TAKE 1 TABLET BY MOUTH DAILY Rx Instructions: TAKE 1 TABLET BY MOUTH DAILY metoprolol succinate 25 mg tablet extended release 24 hr See Rx Instructions .ROUTE .COMPLEX Qty: 30 5RF Dose Instruction: TAKE 1 TABLET BY MOUTH DAILY Rx Instructions: TAKE 1 TABLET BY MOUTH DAILY amoxicillin 875 mg tablet 875 mg PO BID 7 Days Qty: 14 0RF prednisone 20 mg tablet 20 mg PO BID 5 Days Qty: 10 0RF escitalopram oxalate 20 mg tablet See Rx Instructions .ROUTE .COMPLEX Qty: 90 1RF Dose Instruction: TAKE 1 TABLET BY MOUTH DAILY Rx Instructions: TAKE 1 TABLET BY MOUTH DAILY lisinopril 10 mg tablet See Rx Instructions .ROUTE .COMPLEX Qty: 30 2RF Dose Instruction: TAKE 1 TABLET BY MOUTH DAILY Rx Instructions: TAKE 1 TABLET BY MOUTH DAILY alendronate 70 mg tablet See Rx Instructions .ROUTE .COMPLEX Qty: 12 0RF Dose Instruction: TAKE 1 TABLET BY MOUTH WEEKLY Rx Instructions: TAKE 1 TABLET BY MOUTH WEEKLY Discharge Orders: Discharge ED (Routine); Ordered 08/23/21 Ordered By: Oscar Tadeo Referrals: RAJEEV Greene, AUTOMATIC OVEN OPERATOR [Primary Care Provider] - Discharge Diet: Advance as tolerated and Usual diet Discharge Activity: Increase activity as tolerated Patient Instructions: How to Recover from COVID-19 at Home (ED), Opioid Safety Activity Restrictions/Additional Instructions: Take all your usual medications as prescribed. Ensure that you keep well- hydrated and drink at least 6 to 8 to 12 ounce glasses of water daily. If your symptoms persist worsen or new symptoms develop you are welcome to return to the emergency department for reevaluation. You must follow the usual isolation precautions for the COVID-19. Coding Level of Care Code ED Set Up / Operator for Rosa Lee Exam Comprehensive
--- NOTE | 2021-08-23 17:32 | ECG_ITS ---
[facility] Test Date: 2021-08-23 Pat Name: Erin Aguilar Department: Room: Gender: Female Master Baker: : 1935 Requested By: Oscar Tadeo Order Number: [id number] Cooper MD: Renée Shine M.D. Measurements Intervals [place] Rate: 60 P: 114 NH: 173 QRS: 32 QRSD: 142 T: -47 QT: 429 QTc: 429 Interpretive Statements ELECTRONIC ATRIAL PACEMAKER RIGHT BUNDLE BRANCH BLOCK [120+ ms QRS DURATION, UPRIGHT V1, 40+ ms S IN I/aVL/V4/V5/V6] MODERATE T-WAVE ABNORMALITY, CONSIDER LATERAL ISCHEMIA [-0.1+ mV T-WAVE IN I/aVL/V5/V6] Compared to ECG 08/15/2020 18:59:42 Right bundle-branch block now present T-wave abnormality now present Possible ischemia now present Ventricular-paced complex(es) or rhythm no longer present Electronically Signed On 08-23-2021 21:56:03 BRIDGE MECH[employer]IC by Renée Shine M.D. [id number]
--- NOTE | 2021-08-23 17:32 | XRR_ITS ---
PROCEDURE INFORMATION: Exam: XR Chest Exam date and time: 08/23/2021 5:32 PM Age: 86 years old Clinical indication: Cough TECHNIQUE: Imaging protocol: XR of the chest. Views: 1 view. COMPARISON: CR XR chest 1V portable [id number] 08/15/2020 6:37 PM FINDINGS: Tubes, catheters and devices: Intact dual lead left subclavian pacemaker. Lungs: Probable emphysema. Atelectasis or scarring in both lung bases. The lungs are otherwise clear. Pleural spaces: Unremarkable. No pleural effusion. No pneumothorax. Heart/Mediastinum: Unremarkable. No cardiomegaly. Bones/joints: Unremarkable. XR/XR chest 1V portable [id number] IMPRESSION: No acute findings.
[2021-08-23 17:43] LABS: Eosinophils % 0.5 %; Hematocrit 45.3 % (37.0-47.0); Hemoglobin 14.2 g/dL (11.5-15.3); Lymphocytes # 0.7 10^3/uL (0.8-4.8); Lymphocytes % 12.1 %; Mean Corpuscular HGB Conc 31.3 g/dL (30.0-36.0); Mean Corpuscular Hemoglobin 29.3 pg (28.0-34.0); Mean Corpuscular Volume 93.4 fl (81-99); Mean Platelet Volume 10.1 fL (7.4-10.4); Monocytes # 0.4 10^3/uL (0.2-0.9); Monocytes % 6.9 %; Neutrophils # 4.61 10^3/uL (1.8-7.7); Neutrophils % 79.8 %; Nucleated Red Blood Cells % 0 %; Platelet Count 225 10^3/cmm (130-400); Red Blood Count 4.85 10^6/uL (4.1-5.3); Red Cell Distribution Width 14.8 % (12.1-15.1); White Blood Count 5.8 10^3/uL (4.0-10.0)
[2021-08-23] MEDS: sodium chloride 0.9% 1,000 ML 999 ML IV (17:45)
[2021-08-23 18:01] LABS: SARS Covid-2 Antigen Positive (Negative)
[2021-08-23 18:19] LABS: Alanine Aminotransferase 16 U/L (0-33); Albumin Level 3.8 g/dL (3.5-5.2); Alkaline Phosphatase 131 IU/L (35-105); Aspartate Amino Transferase 36 U/L (0-32); Blood Urea Nitrogen 25 mg/dL (8-23); Calcium 10.2 mg/dL (8.5-10.5); Carbon Dioxide 24 mmol/L (22-29); Chloride 94 mmol/L (98-107); Globulin 3.3 g/dL (1.3-4.6); Glucose 125 mg/dL (65-115); Osmolality Calculated 282 mOsm/kg (285-295); Sodium 133 mmol/L (136-145); Total Bilirubin 0.2 mg/dL (0.15-1.2); Total Protein 7.1 g/dL (6.6-8.7)
[2021-08-23] MEDS: HYDROcodone-acetaminophen 5-325 mg Tablet 1 TAB PO (20:00)
[2021-08-23] MEDS: acetaminophen 325 mg Tablet 650 MG PO (20:01)
[2021-08-23 20:16] LABS: Troponin T (5th) Once 6 ng/L (0-10)
== END 2021-08-23 21:48 | disposition home or self-care (01) ==
PROVIDERS: Emergency Provider Emergency Medicine; PCP Nurse Practitioner Family
DX: U07.1 COVID-19 (principal); Z86.73 Personal history of transient ischemic attack (TIA), and cerebral infarction without residual deficits; I10 Essential (primary) hypertension; Z86.711 Personal history of pulmonary embolism; E78.2 Mixed hyperlipidemia
CPT/HCPCS: 71045; 80053; 84484; 85025; 87426; 93005; 96360; 99284; J7030

== ENCOUNTER → 2021-10-11 10:25 | Outpatient (BNVA) | payer MEDICARE, OTHER, SELFPAY | PROVIDERS: PCP Nurse Practitioner Family; Visit Provider Nurse Practitioner Family | DX: R39.9 Unspecified symptoms and signs involving the genitourinary system (principal) | CPT/HCPCS: 81003 ==

== ENCOUNTER → 2022-02-20 09:19 | Outpatient (BNVA) | payer MEDICARE, SELFPAY | PROVIDERS: PCP Nurse Practitioner Family; Visit Provider Nurse Practitioner Family | DX: D64.9 Anemia, unspecified (principal); R39.9 Unspecified symptoms and signs involving the genitourinary system; I10 Essential (primary) hypertension; E55.9 Vitamin D deficiency, unspecified; E78.5 Hyperlipidemia, unspecified; R35.0 Frequency of micturition; R35.89 Other polyuria | CPT/HCPCS: 80053; 80061; 81000; 82652; 83550; 85025 ==

== ENCOUNTER 2022-06-10 08:51 | Outpatient (CLI) | payer MEDICARE, SELFPAY ==
--- NOTE | 2022-06-10 10:30 | CT_ITS ---
WS: [id number] CT LUMBAR SPINE TECHNIQUE: Noncontrast CT of the lumbar spine with coronal and sagittal reformatted images. CLINICAL INFORMATION: M54.50 - Low back pain, unspecified COMPARISON: CT DLP: 1662.[address] scans at [facility] use at least one of these dose optimization techniques: automated e xposure control; mA and/or kV adjustment per patient size (includes targeted exams where dose is matc hed to clinical indication); or iterative reconstruction. FINDINGS: Mild lumbar curve convex LEFT. No acute compression fractures. IVC filter. Disc space narrowing worse at L2-L3 L3-L4 and L5-S1. Partial bony fusion L5-S1. Grade 1 anterolisthesis L4 on L5 measuring 6 mm . L1-L2: Normal. L2-L3: Vacuum disc phenomenon. Narrowing of the subarticular recess bilaterally. Mild facet arthropat hy. Mild bilateral foraminal narrowing. L3-L4: Vacuum disc phenomenon. Mild central canal stenosis with narrowing of the RIGHT greater than L EFT subarticular recess. Moderate facet arthropathy with ligamentum flavum flavum hypertrophy. Modera te RIGHT and mild LEFT foraminal narrowing. L4-L5: Grade 1 anterolisthesis. Moderate to severe central canal stenosis with advanced facet arthrop athy and ligament flavum hypertrophy. Impingement traversing L5 nerve roots bilaterally. Moderate RIG HT and mild LEFT bony foraminal narrowing. L5-S1: Advanced facet arthropathy. Slight effacement of ventral thecal sac. Mild bilateral foraminal narrowing. Aortic calcification. Adrenal glands are normal. CT/CT lumbar spine wo con* [id number] IMPRESSION: 1. Moderate to severe central canal stenosis L4-L5 due to grade 1 anterolisthe sis in combination with advanced facet arthropathy and ligament flavum hypertro phy. This appears stable compared to previous. 2. Mild central canal stenosis L3-L4. 3. Narrowing of the subarticular recess worse at RIGHT L2-L3, bilateral L3-L4, and bilateral L4-L5. 4. Mild to moderate bony foraminal narrowing worse at RIGHT L3-L4 and RIGHT L4 -L5 5. IVC filter.
== END 2022-06-10 08:52 | disposition home or self-care (01) ==
PROVIDERS: PCP Nurse Practitioner Family; Visit Provider Nurse Practitioner Family
DX: M50.30 Other cervical disc degeneration, unspecified cervical region; M79.604 Pain in right leg; M48.061 Spinal stenosis, lumbar region without neurogenic claudication
CPT/HCPCS: 72131

== ENCOUNTER → 2022-08-05 13:28 | Outpatient (BNVA) | payer BC, SELFPAY | PROVIDERS: PCP Nurse Practitioner Family; Visit Provider Nurse Practitioner Family | DX: N39.0 Urinary tract infection, site not specified (principal) | CPT/HCPCS: 81000 ==

== ENCOUNTER → 2022-09-25 14:51 | Outpatient (BNVA) | payer MEDICARE, SELFPAY | PROVIDERS: PCP Nurse Practitioner Family; Visit Provider Nurse Practitioner Family | DX: R53.83 Other fatigue (principal); D64.9 Anemia, unspecified; I10 Essential (primary) hypertension | CPT/HCPCS: 80053; 83550; 85025 ==

== ENCOUNTER → 2023-07-03 15:50 | Outpatient (BNVA) | payer MEDICARE, MEDICAID, SELFPAY | PROVIDERS: PCP Nurse Practitioner Family; Visit Provider Nurse Practitioner Family | DX: E55.9 Vitamin D deficiency, unspecified (principal); D64.9 Anemia, unspecified; Z79.899 Other long term (current) drug therapy; E78.5 Hyperlipidemia, unspecified; R53.83 Other fatigue; I10 Essential (primary) hypertension; F41.9 Anxiety disorder, unspecified; F32.9 Major depressive disorder, single episode, unspecified | CPT/HCPCS: 80053; 80061; 82306; 83036; 83550; 84443; 85025 ==

== ENCOUNTER → 2023-07-07 11:50 | Outpatient (BNVA) | payer MEDICARE, MEDICAID, SELFPAY | PROVIDERS: PCP Nurse Practitioner Family; Visit Provider Nurse Practitioner Family | DX: D64.9 Anemia, unspecified (principal) | CPT/HCPCS: 81003 ==

== ENCOUNTER → 2023-11-27 09:59 | Outpatient (BNVA) | payer MEDICARE, MEDICAID, SELFPAY | PROVIDERS: PCP Nurse Practitioner Family; Visit Provider Nurse Practitioner Family | DX: I10 Essential (primary) hypertension (principal); E78.2 Mixed hyperlipidemia; D64.9 Anemia, unspecified; R53.1 Weakness; Z95.828 Presence of other vascular implants and grafts; M81.0 Age-related osteoporosis without current pathological fracture; H54.8 Legal blindness, as defined in USA; Z93.3 Colostomy status; K45.8 Other specified abdominal hernia without obstruction or gangrene; D73.89 Other diseases of spleen | CPT/HCPCS: 80053; 81003; 82607; 82728; 83550; 85025 ==

== ENCOUNTER → 2023-12-03 10:31 | Outpatient (BNVA) | payer MEDICARE, MEDICAID, SELFPAY | PROVIDERS: PCP Nurse Practitioner Family; Visit Provider Nurse Practitioner Family | DX: I10 Essential (primary) hypertension (principal); E78.2 Mixed hyperlipidemia; D64.9 Anemia, unspecified; R53.1 Weakness | CPT/HCPCS: 81003 ==

== ENCOUNTER → 2024-01-26 10:19 | Outpatient (BNVA) | payer MEDICARE, MEDICAID, SELFPAY | PROVIDERS: PCP Nurse Practitioner Family; Visit Provider Nurse Practitioner Family | DX: K45.8 Other specified abdominal hernia without obstruction or gangrene (principal); R16.1 Splenomegaly, not elsewhere classified; R09.02 Hypoxemia; R19.00 Intra-abdominal and pelvic swelling, mass and lump, unspecified site; R06.02 Shortness of breath; Z86.711 Personal history of pulmonary embolism | CPT/HCPCS: 80053; 83880; 85025 ==

== ENCOUNTER → 2024-01-27 12:00 | Outpatient (BNVA) | payer MEDICARE, MEDICAID, SELFPAY | PROVIDERS: PCP Nurse Practitioner Family; Visit Provider Nurse Practitioner Family | DX: K45.8 Other specified abdominal hernia without obstruction or gangrene (principal); R16.1 Splenomegaly, not elsewhere classified; R09.02 Hypoxemia; R19.00 Intra-abdominal and pelvic swelling, mass and lump, unspecified site; R06.02 Shortness of breath; Z86.711 Personal history of pulmonary embolism | CPT/HCPCS: 81003 ==

== ENCOUNTER 2024-02-02 08:38 | Outpatient (CLI) | payer MEDICARE, MEDICAID, SELFPAY ==
--- NOTE | 2024-02-02 08:51 | XR_ITS ---
WS: [id number] PA and lateral chest, 02/02/2024 Clinical Data: R79.89 - Other specified abnormal findings of blood chemi... Comparison: Portable chest, 08/23/2021 Findings: No nodules or masses are seen. There are patchy bilateral basilar opacities. There is a le ft pleural effusion. The heart is enlarged. The aortic arch and descending thoracic aorta show calcif ication and tortuosity. The 2-lead pacemaker remains in good position. XR/XR chest 2V* [id number] Impression: 1. Patchy bilateral pulmonary opacities which may represent atelectasis and/or pneumonia. 2. Left pleural effusion. 3. Atherosclerosis, permanent pacemaker and cardiomegaly.
[2024-02-02 10:24] LABS: Alanine Aminotransferase 13 U/L (0-33); Albumin Level 3.8 g/dL (3.5-5.2); Alkaline Phosphatase 147 U/L (35-105); Anion Gap 10.5 (5-19); Aspartate Amino Transferase 34 U/L (0-32); Blood Urea Nitrogen 17 mg/dL (8-23); Calcium 9.2 mg/dL (8.5-10.5); Carbon Dioxide 32 mmol/L (22-29); Chloride 103 mmol/L (98-107); Globulin 3.3 g/dL (1.3-4.6); Glucose 121 mg/dL (65-115); Osmolality Calculated 295 mOsm/kg (285-295); Potassium 4.5 mmol/L (3.5-5.1); Sodium 141 mmol/L (136-145); Total Bilirubin 0.3 mg/dL (0.15-1.2); Total Protein 7.1 g/dL (6.6-8.7)
== END 2024-02-02 08:39 | disposition home or self-care (01) ==
PROVIDERS: PCP Nurse Practitioner Family; Visit Provider Nurse Practitioner Family
DX: R79.89 Other specified abnormal findings of blood chemistry (principal); I51.7 Cardiomegaly; Z95.0 Presence of cardiac pacemaker; I70.90 Unspecified atherosclerosis; R09.02 Hypoxemia; R19.00 Intra-abdominal and pelvic swelling, mass and lump, unspecified site; R06.02 Shortness of breath
CPT/HCPCS: 36415; 71046; 80053

== ENCOUNTER → 2024-02-16 08:50 | Outpatient (BNVA) | payer MEDICARE, MEDICAID, SELFPAY | PROVIDERS: PCP Nurse Practitioner Family; Visit Provider Nurse Practitioner Family | DX: I10 Essential (primary) hypertension (principal) | CPT/HCPCS: 80053 ==

== ENCOUNTER 2024-08-03 11:13 | Emergency (ER) | payer MEDICARE, SELFPAY ==
[2024-08-03 11:16] VITALS: BP 141/64; PULSE 75; RESP 16; TEMP 36.8; O2SAT 95; BMI 41.3
--- NOTE | 2024-08-03 11:19 | XRR_ITS ---
PROCEDURE INFORMATION: Exam: XR Abdomen Exam date and time: 08/03/2024 11:43 AM Age: 89 years old Clinical indication: Abdominal pain; Generalized; Additional info: Abd pain TECHNIQUE: Imaging protocol: Radiologic exam of the abdomen. Views: Frontal supine view of the abdomen. 1 View. COMPARISON: CT abdomen pelvis wo/w [id number] 02/22/2020 1:27 PM FINDINGS: Tubes, catheters and devices: Partially seen cardiac conduction device. Lungs: Lung bases are clear. Gastrointestinal tract: 10.4 cm dilated bowel loop in the upper abdomen (presumably the stomach, although a segment of colon is also in differential diagnosis). Several air-filled bowel loops are seen throughout the abdomen, though not significantly dilated. Organs: Surgical clips are present in the right upper quadrant, consistent with previous cholecystectomy. Bones/joints: Unremarkable. XR/XR KUB portable [id number] IMPRESSION: 10.4 cm dilated bowel loop in the upper abdomen (presumably the stomach, although a segment of colon is also in differential diagnosis). Several air-filled bowel loops are seen throughout the abdomen, though not significantly dilated. Overall, the bowel gas pattern is not frankly obstructive, however I would follow-up the dilated loop in the upper abdomen. If patient symptoms worsen, consider abdomen and pelvic CT.
--- NOTE | 2024-08-03 11:20 | ED_ITS ---
HPI - Abdominal Pain 2 General: Chief Complaint: Abdominal Pain Stated Complaint: ABD Pain Time Seen by Provider: 08/03/24 11:18 History of Present Illness: 89-year-old female presents with abdomin al pain that started yesterday after lunch. She reports that she has a large right lower quadrant hernia that seems to be a lot bigger to day and more prominent. Patient had some nausea and round and received some Zofran from EMS. Patient has a ostomy in her left lower quadrant and reports some decreased output since yesterday. Associated Symptoms: Reports bloating and nausea; Denies chills, fever(s) and vomiting Related Data Home Medications Medication Instructions Recorded Confirmed hydrocodone 10 mg-acetaminophen 1 tab PO QID PRN Pain 02/03/24 08/03/24 325 mg tablet nitroglycerin 0.4 mg sublingual 0.4 mg buccal PRN PRN Chest Pain 05/14/24 08/03/24 tablet carbidopa 10 mg-levodopa 100 mg 2 tab PO BID 08/03/24 08/03/24 tablet escitalopram oxalate 20 mg tablet 20 mg PO DAILY 08/03/24 08/03/24 furosemide 20 mg tablet 20 mg PO DAILY 08/03/24 08/03/24 metoprolol succinate 25 mg 25 mg PO DAILY 08/03/24 08/03/24 tablet,extended release 24 hr mirtazapine 15 mg tablet 15 mg PO DAILY 08/03/24 08/03/24 potassium chloride 10 mEq 10 meq PO DAILY 08/03/24 08/03/24 tablet,extended release rivaroxaban 20 mg tablet (Xarelto) 20 mg PO DAILY 08/03/24 08/03/24 Previous Rx's Medication Instructions Recorded Bariatric Wheelchair with foot #1 ea 11/30/[address] [facility] Bed Mattress #1 ea 11/30/23 miscellaneous medical supply #1 ea 11/30/23 Home oxygen #1 ea 01/26/24 pregabalin 100 mg capsule 100 mg PO BID 30 days #60 caps 04/20/24 amlodipine 10 mg tablet 5 mg (1/2 x 10 mg) PO DAILY #90 05/20/24 tabs pantoprazole 40 mg tablet,delayed 40 mg PO DAILY #90 tabs 05/20/24 release atropine 1 % eye drops 4 drp sublingual Q4H PRN 08/03/24 Secretions #5 mL bisacodyl 10 mg rectal suppository 10 mg OR DAILY PRN Constipation #5 08/03/24 (Dulcolax (bisacodyl)) ea diphenhydramine HCl 25 mg tablet 25 mg PO Q4H PRN Allergic Reaction 08/03/24 #5 tabs hydroxyzine HCl 25 mg tablet 25 mg PO TID PRN Itching #5 tabs 08/03/24 lorazepam 2 mg/mL oral concentrate 2 mg sublingual Q4H PRN 08/03/24 Anxiety/Seizure #30 mL morphine concentrate 100 mg/5 mL 20 mg sublingual DIRECTED PRN 08/03/24 (20 mg/mL) oral solution Pain/SOB 14 days #30 mL ondansetron 4 mg disintegrating 4 mg translingual Q4H PRN Nausea 08/03/24 tablet #5 tabs Allergies Allergy/AdvReac Type Severity Reaction Status Date / Time azithromycin Allergy unknown Verified 05/14/24 10:40 Cephalosporins Allergy unknown Verified 05/14/24 10:40 Review of Systems 2 Const: Denies: fever(s) or chills Card: Denies: chest pain or palpitations Resp: Denies: dyspnea or productive cough GI: Reports: abdominal pain, nausea and bloating; Denies: vomiting : Denies: flank pain or difficulty voiding Neuro: Denies: headache(s) PFSH ED 2 PFSH: Medical History Conjunctivitis Elevated brain natriuretic peptide (BNP) level Bloating Shortness of breath Abdominal swelling Oxygen desaturation Hypoxia Splenic mass Postmenopausal bleeding Cervical cancer screening Influenza vaccine needed Pacemaker UTI symptoms Hearing loss Upper respiratory infection Essential hypertension DDD (degenerative disc disease), cervical Cellulitis Acute UTI (urinary tract infection) Left ankle sprain Yeast vaginitis Shakiness GERD (gastroesophageal reflux disease) Mixed hyperlipidemia Anemia Mental status alteration Vitamin D deficiency Fatigue UTI (urinary tract infection), bacterial Anxiety and depression Rotator cuff tear arthropathy of left shoulder Chronic anticoagulation Spinal stenosis Osteoporosis Essential hypertension Bladder wall thickening History of pulmonary embolism Intertrigo Abdominal hernia Splenic lesion Generalized weakness CVA (cerebrovascular accident) Polyneuropathy Surgical History S/P IVC filter S/P hernia repair S/P colostomy Family History Father CAD (coronary artery disease) Chronic kidney disease (CKD) Hypertension Mother CAD (coronary artery disease) Hypertension Brother CAD (coronary artery disease) Hypertension Family/Other CAD (coronary artery disease) Cancer Diabetes Hypertension Son Cancer CAD (coronary artery disease) Diabetes Hypertension Sister Cancer Diabetes Hypertension Lung disease Stroke Social History Smoking and tobacco/nicotine status: former use of tobacco/nicotine Alcohol intake: never Substance/Drug Use: current Substance/Drug use frequency: daily Other substance/drug use details: Pt is presciped it. Adopted: No Lives independently: No Household members: family and other Details: grandson Housing: House Current occupation: retired/disabled Physical Exam 2 Const: COMMON NORMALS: patient oriented x3 GENERAL APPEARANCE: cooperative NUTRITIONAL APPEARANCE: obese Resp: COMMON NORMALS: normal respiratory effort, No retractions and No use of accessory muscles Cardio: COMMON NORMALS: regular rate and regular rhythm RATE: regular rate RHYTHM: regular rhythm GI: INSPECTION: Yes central obesity PALPATION: Yes Tenderness to palpation present (GI) (Diffuse) OTHER: Large abdominal hernia right lower quadrant Neuro: COMMON NORMALS: patient oriented x3 and no focal motor deficits Psych: COMMON NORMALS: mental status grossly normal, Normal thought process present, cooperative and normal affect THOUGHT PROCESS: Normal thought process present Course 2 Vital Signs: Vital signs: Vital Signs Temperature 98.3 F 08/03/24 11:16 Pulse Rate 61 08/03/24 13:50 Respiratory Rate 18 08/03/24 12:53 Blood Pressure 112/75 08/03/24 13:50 Pulse Oximetry 96 08/03/24 13:50 Oxygen Delivery Me thod Nasal Cannula 08/03/24 11:16 Oxygen Flow Rate 2 08/03/24 11:16 MDM - Abdominal Pain Medical Decision Making Patient's diagnostic studies were ordered reviewed and interpreted by me. Patient CT showed significant findings including small bowel obstruction with perforation. Patient was seen and evaluated in the ER by general surgery. At this time she is not felt to be a candidate due to her significant medical comorbidities for surgery. She would prefer to be discharged home on hospice. We did consult mental health social worker who helped arrange for hospice. Patient initial hospice medication orders were written by me. Patient will be transferred back home on hospice care. She was stable upon discharge with very poor prognosis. Lab Data 08/03/24 11:31 08/03/24 11:31 Labs/Radiology: Radiology Impressions KUB X-Ray 08/03/24 11:19 IMPRESSION: 10.4 cm dilated bowel loop in the upper abdomen (presumably the stomach, although a segment of colon is also in differential diagnosis). Several air-filled bowel loops are seen throughout the abdomen, though not significantly dilated. Overall, the bowel gas pattern is not frankly obstructive, however I would follow-up the dilated loop in the upper abdomen. If patient symptoms worsen, consider abdomen and pelvic CT. Abdomen/Pelvis CT 08/03/24 12:27 IMPRESSION: 1. Multiple dilated small bowel loops throughout the abdomen, however most concentrated at the right lower quadrant, with loops measuring up to 7.2 cm in diameter. Difficult to confidently pinpoint the transition segment, however it is likely within the right lower quadrant as the distal small bowel loops are completely collapsed. Additionally, there are several small bowel anastomosis present in the right lower quadrant. Findings most compatible with small bowel obstruction. 2. Moderate pneumoperitoneum which appears to be mostly centered in the right lower quadrant adjacent to the dilated loops. Most concerning for small bowel perforation and/or anastomotic dehiscence. 3. Lobulated hypodense lesion in the spleen measuring 2.2 cm. Incompletely characterized in this examination. Consider nonemergent ultrasound follow-up. 4. 1.4 cm exophytic dense or enhancing lesion in the left kidney. Could be related to a complex cyst or solid lesion. Follow-up nonemergent ultrasound is recommended for clarification. COMMENTS: 1. THIS REPORT CONTAINS FINDINGS THAT MAY BE CRITICAL TO PATIENT CARE. The findings were verbally communicated via telephone conference with JERAMIE ANTHONY at 1:54 PM CALL CENTER DISPATCHER on 08/03/2024. The findings were acknowledged and understood. 2. For patients with an IVC filter, recommend assessment for a management plan for the patient's IVC filter. If there is no established management plan, recommend referral to an interventional clinician on a nonemergent basis for evaluation. 3. Consistent with the [employer]'s Incidental Findings Committee white paper (J Am Sarah Radiol 2018): Any incidental renal lesion less than 1 cm or classified as too small to characterize, or any incidental cystic renal lesion characterized as simple-appearing, is likely benign. No follow-up imaging is recommended for these lesions per consensus recommendations based on imaging criteria. Laboratory Results WBC 13.69 10^3/uL (3.29-11.43) H 08/03/24 11:31 RBC 4.45 10^6/uL (3.85-5.65) 08/03/24 11:31 Hgb 12.60 g/dL (11.27-16.99) 08/03/24 11:31 Hct 41.6 % (36-47) 08/03/24 11:31 MCV 93.5 fl (85-98) 08/03/24 11:31 MCH 28.3 pg (27-33) 08/03/24 11:31 MCHC 30.3 g/dL (30-55) 08/03/24 11:31 RDW 14.8 % (12.1-15.1) 08/03/24 11:31 Plt Count 292 10^3/cmm (157-399) 08/03/24 11:31 MPV 9.6 fL (7.4-10.4) 08/03/24 11:31 Neut % (Auto) 86.9 % 08/03/24 11:31 Lymph % (Auto) 6.1 % 08/03/24 11:31 [place] % (Auto) 6.4 % 08/03/24 11:31 Eos % (Auto) 0.1 % 08/03/24 11:31 Baso % (Auto) 0.1 % 08/03/24 11:31 Neut # (Auto) 11.90 10^3/uL (1.8-7.7) H 08/03/24 11:31 Lymph # (Auto) 0.8 10^3/uL (0.8-4.8) 08/03/24 11:31 [place] # (Auto) 0.9 10^3/uL (0.2-0.9) 08/03/24 11:31 Eos # (Auto) 0.0 10^3/uL (0.0-0.8) 08/03/24 11:31 Baso # (Auto) 0.0 10^3/uL (0.0-0.1) 08/03/24 11:31 Nucleated RBC % (auto) 0 % 08/03/24 11:31 Nucleated RBCs # 0.0 /100WBC 08/03/24 11:31 Sodium 139 mmol/L (136-145) 08/03/24 11:31 Potassium 4.4 mmol/L (3.5-5.1) 08/03/24 11:31 Chloride 96 mmol/L (98-107) L 08/03/24 11:31 Carbon Dioxide 33 mmol/L (22-29) H 08/03/24 11:31 Anion Gap 14.4 (5-19) 08/03/24 11:31 BUN 26 mg/dL (8-23) H 08/03/24 11:31 Creatinine 0.9 mg/dL (0.5-0.9) 08/03/24 11:31 GFR Calculation Not Reportable 08/03/24 11:31 Glucose 124 mg/dL (65-115) H 08/03/24 11:31 Calculated Osmolality 294 mOsm/kg (285-295) 08/03/24 11:31 Lactic Acid 1.5 mmol/L (0.5-2.2) 08/03/24 11:31 Calcium 9.8 mg/dL (8.5-10.5) 08/03/24 11:31 Total Bilirubin 0.5 mg/dL (0.15-1.2) 08/03/24 11:31 AST 35 U/L (0-32) H 08/03/24 11:31 ALT < 5 U/L (0-33) 08/03/24 11:31 Alkaline Phosphatase 137 U/L (35-105) H 08/03/24 11:31 Total Protein 7.7 g/dL (6.6-8.7) 08/03/24 11:31 Albumin 3.9 g/dL (3.5-5.2) 08/03/24 11:31 Globulin 3.8 g/dL (1.3-4.6) 08/03/24 11:31 Urine Color Dark yellow (Yellow) A 08/03/24 12:35 Urine Appearance Clear (CLEAR) 08/03/24 12:35 Urine pH 5.0 (5-7) 08/03/24 12:35 Ur Specific [place] 1.029 (1.005-1.030) 08/03/24 12:35 Urine Protein 1+ (Negative) A 08/03/24 12:35 Urine Glucose (UA) Negative (Normal) 08/03/24 12:35 Urine Ketones Trace (Negative) 08/03/24 12:35 Urine Blood Negative (Negative) 08/03/24 12:35 Urine Nitrate Negative (Negative) 08/03/24 12:35 Urine Bilirubin Negative (Negative) 08/03/24 12:35 Urine Urobilinogen 1.0 mg/dL (Negative) 08/03/24 12:35 Ur Leukocyte Esterase Negative (Negative) 08/03/24 12:35 Urine RBC 11-20 /hpf (0-2) H 08/03/24 12:35 Urine WBC 0-5 /hpf (0-5) 08/03/24 12:35 Ur Squamous Epith Cells 6-10 /hpf (0-5) 08/03/24 12:35 Amorphous Sediment Not Reportable 08/03/24 12:35 Urine Bacteria Trace /hpf (NONE) 08/03/24 12:35 Hyaline Casts 2.46 /lpf 08/03/24 12:35 All radiology interpretation(s) finalized by discharge Discharge Plan Discharge Patient Disposition: Home Clinical Impression: 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 diphenhydramine HCl 25 mg Tablet 25 mg PO Q4H PRN (Reason: Allergic Reaction) Qty: 5 0RF Rx Instructions: Take one tablet by mouth every 4 hours as needed for allergic reaction hydroxyzine HCl 25 mg Tablet 25 mg PO TID PRN (Reason: Itching) Qty: 5 0RF Rx Instructions: Take 1 tablet by mouth as needed three times a day for itching atropine 1 % Drops 4 drp sublingual Q4H PRN (Reason: Secretions) Qty: 5 0RF Rx Instructions: 4 drops SL q 4 hours PRN for terminal congestion/excessive secretions. ondansetron 4 mg Tablet,Disintegrating 4 mg translingual Q4H PRN (Reason: Nausea) Qty: 5 0RF Rx Instructions: Dissolve 1 tablet under tongue every 4 hours PRN for nausea lorazepam 2 mg/mL Concentrate 2 mg sublingual Q4H PRN (Reason: Anxiety/Seizure) Qty: 30 0RF Rx Instructions: 0.25ml-1ml q4H PRN Anxiety/Seizure Start 0.25ml may increase to 0.5ml-1ml q4H No Action (DME) miscellaneous medical supply Misc See Rx Instructions .Route Qty: 1 0RF Rx Instructions: Hospital Bed Mattress - daily (DME) Hospital Bed Mattress See Rx Instructions .Route .MEDSUPPLY Qty: 1 0RF Rx Instructions: As directed (DME) Bariatric Wheelchair with foot rests See Rx Instructions .Route .MEDSUPPLY Qty: 1 0RF Rx Instructions: As directed nitroglycerin 0.4 mg tablet, sublingual 0.4 mg buccal PRN PRN (Reason: Chest Pain) (DME) Home oxygen See Rx Instructions .Route .MEDSUPPLY Qty: 1 0RF Rx Instructions: As directed pregabalin 100 mg capsule 100 mg PO BID 30 Days Qty: 60 5RF amlodipine 10 mg tablet 5 mg PO DAILY Qty: 90 0RF pantoprazole 40 mg tablet,delayed release (DR/EC) 40 mg PO DAILY Qty: 90 1RF Rx Instructions: TAKE 1 TABLET BY MOUTH DAILY carbidopa-levodopa 10-100 mg tablet 2 tab PO BID furosemide 20 mg tablet 20 mg PO DAILY escitalopram oxalate 20 mg tablet 20 mg PO DAILY potassium chloride 10 mEq tablet extended release 10 meq PO DAILY Rx Instructions: TAKE 1 TABLET BY MOUTH DAILY for 30 days mirtazapine 15 mg tablet 15 mg PO DAILY metoprolol succinate 25 mg tablet extended release 24 hr 25 mg PO DAILY Xarelto 20 mg tablet 20 mg PO DAILY hydrocodone-acetaminophen 10-325 mg tablet 1 tab PO QID PRN (Reason: Pain) Rx Instructions: orally as needed Discharge Orders: Discharge ED (Routine); Ordered 08/03/24 Ordered By: Jeramie Anthony Referrals: RAJEEV Greene, ANIMAL WARDEN [Primary Care Provider] - Patient Instructions: Opioid Safety, Pain Management Coding Level of Care Code ED Communication Specialist for Chg Fwd
[2024-08-03 11:36] VITALS: RESP 16; O2SAT 94
[2024-08-03 11:36] LABS: Basophils % 0.1 %; Eosinophils % 0.1 %; Hematocrit 41.6 % (36-47); Lymphocytes # 0.8 10^3/uL (0.8-4.8); Lymphocytes % 6.1 %; Mean Corpuscular HGB Conc 30.3 g/dL (30-55); Mean Corpuscular Hemoglobin 28.3 pg (27-33); Mean Corpuscular Volume 93.5 fl (85-98); Mean Platelet Volume 9.6 fL (7.4-10.4); Monocytes # 0.9 10^3/uL (0.2-0.9); Monocytes % 6.4 %; Neutrophils % 86.9 %; Nucleated Red Blood Cells % 0 %; Platelet Count 292 10^3/cmm (157-399); Red Blood Count 4.45 10^6/uL (3.85-5.65); Red Cell Distribution Width 14.8 % (12.1-15.1); White Blood Count 13.69 10^3/uL (3.29-11.43)
[2024-08-03] MEDS: fentaNYL 50 mcg/mL INJ 2mL IVP (11:36)
[2024-08-03 12:05] LABS: Alanine Aminotransferase < 5 U/L (0-33); Albumin Level 3.9 g/dL (3.5-5.2); Alkaline Phosphatase 137 U/L (35-105); Anion Gap 14.4 (5-19); Aspartate Amino Transferase 35 U/L (0-32); Blood Urea Nitrogen 26 mg/dL (8-23); Calcium 9.8 mg/dL (8.5-10.5); Carbon Dioxide 33 mmol/L (22-29); Chloride 96 mmol/L (98-107); Creatinine Clr Calc Pharmacy 51.2081; Globulin 3.8 g/dL (1.3-4.6); Glucose 124 mg/dL (65-115); Osmolality Calculated 294 mOsm/kg (285-295); Potassium 4.4 mmol/L (3.5-5.1); Sodium 139 mmol/L (136-145); Total Bilirubin 0.5 mg/dL (0.15-1.2); Total Protein 7.7 g/dL (6.6-8.7)
[2024-08-03 12:06] LABS: Lactic Sepsis W/Reflex 1.5 mmol/L (0.5-2.2)
--- NOTE | 2024-08-03 12:27 | CTR_ITS ---
PROCEDURE INFORMATION: Exam: CT Abdomen And Pelvis With Contrast Exam date and time: 08/03/2024 1:28 PM Age: 89 years old Clinical indication: Abdominal pain; Prior surgery; Surgery date: 6+ months; Surgery type: Hernia repair; Additional info: Abd pain, abnormal cxr TECHNIQUE: Imaging protocol: Computed tomography of the abdomen and pelvis with contrast. Radiation optimization: All CT scans at this facility use at least one of these dose optimization techniques: automated exposure control; mA and/or kV adjustment per patient size (includes targeted exams where dose is matched to clinical indication); or iterative reconstruction. Contrast material: OMNI 350; Contrast volume: 100 ml; Contrast route: INTRAVENOUS (IV); COMPARISON: CR XR KUB portable [id number] 08/03/2024 11:43 AM RADIATION DOSE METRICS: Total DLP (mGy-cm): 1075.32 FINDINGS: Lungs: Right lung calcified granuloma is benign. No large consolidations in the lung bases. Pleural spaces: Small left pleural effusion is partially seen with associated atelectasis. Liver: Liver is enlarged measuring 18 cm. Scattered subcentimeter hypodense liver lesions which are too small to characterize. Consider follow-up with ultrasound. Single calcified liver granuloma is benign. The liver is otherwise unremarkable. Gallbladder and biliary ducts: Cholecystectomy. Mild intra-and extrahepatic biliary ductal dilation is most likely the sequela of prior cholecystectomy in the absence of clinical symptomatology. If warranted, consider correlation with biliary levels. Pancreas: Benign fatty infiltration of the pancreas. The pancreas is otherwise unremarkable. Spleen: The spleen demonstrates punctate calcifications, consistent with remote granulomatous organism exposure. Lobulated hypodense lesion in the spleen measuring 2.2 cm. The spleen is otherwise unremarkable. Adrenal glands: Adrenal glands are normal. Kidneys and ureters: 1.4 cm exophytic dense or enhancing lesion in the left kidney. Single subcentimeter left kidney hypodense lesion which is too small to characterize. Consider follow-up ultrasound. There is no evidence of hydronephrosis. No hydroureter. Stomach and bowel: Multiple dilated small bowel loops throughout the abdomen, however most concentrated at the right lower quadrant, with loops measuring up to 7.2 cm in diameter. Difficult to confidently pinpoint the transition segment, however it is likely within the right lower quadrant as the distal small bowel loops are completely collapsed. Additionally, there are several small bowel anastomosis present in the right lower quadrant. Prior colectomy with left lower quadrant ostomy. Julian pouch is present in the pelvis. Appendix: Not confidently seen. Intraperitoneal space: Moderate pneumoperitoneum which appears to be mostly centered in the right lower quadrant adjacent to the dilated loops. No intraperitoneal fluid collections. Trace ascites in the right lower quadrant. Vasculature: IVC filter is present and the prongs appear extruded with the hook tilted towards the left. Moderate arterial atherosclerosis without aneurysms. Lymph nodes: Unremarkable. No enlarged lymph nodes. Urinary bladder: Bladder is decompressed and difficult to evaluate. Reproductive: There has been a hysterectomy. Suggested cystic structure at the hysterectomy bed, I am unclear if this is related to the adnexa superimposed upon the hysterectomy bed. Follow-up ultrasound may be entertained for clarification in a nonemergent setting. Bones/joints: Moderate multilevel degenerative changes of the spine. Soft tissues: Severe diastasis recti with herniation of the intra-abdominal content into the subcutaneous tissues of the ventral abdominal wall, the largest segment in the right lower quadrant. CT/CT abdomen pelvis w con* [id number] IMPRESSION: 1. Multiple dilated small bowel loops throughout the abdomen, however most concentrated at the right lower quadrant, with loops measuring up to 7.2 cm in diameter. Difficult to confidently pinpoint the transition segment, however it is likely within the right lower quadrant as the distal small bowel loops are completely collapsed. Additionally, there are several small bowel anastomosis present in the right lower quadrant. Findings most compatible with small bowel obstruction. 2. Moderate pneumoperitoneum which appears to be mostly centered in the right lower quadrant adjacent to the dilated loops. Most concerning for small bowel perforation and/or anastomotic dehiscence. 3. Lobulated hypodense lesion in the spleen measuring 2.2 cm. Incompletely characterized in this examination. Consider nonemergent ultrasound follow-up. 4. 1.4 cm exophytic dense or enhancing lesion in the left kidney. Could be related to a complex cyst or solid lesion. Follow-up nonemergent ultrasound is recommended for clarification. COMMENTS: 1. THIS REPORT CONTAINS FINDINGS THAT MAY BE CRITICAL TO PATIENT CARE. The findings were verbally communicated via telephone conference with ANCELMO BROWN at 1:54 PM [employer] POL[employer] HAND on 08/03/2024. The findings were acknowledged and understood. 2. For patients with an IVC filter, recommend assessment for a management plan for the patient's IVC filter. If there is no established management plan, recommend referral to an interventional clinician on a nonemergent basis for evaluation. 3. Consistent with the [employer]'s Incidental Findings Committee white paper (J Am Sarah Radiol 2018): Any incidental renal lesion less than 1 cm or classified as too small to characterize, or any incidental cystic renal lesion characterized as simple-appearing, is likely benign. No follow-up imaging is recommended for these lesions per consensus recommendations based on imaging criteria.
[2024-08-03 12:52] LABS: Bilirubin Urine Negative (Negative); Blood Urine Negative (Negative); Glucose Urine UA Negative (Normal); Ketones Urine Trace (Negative); Leukocyte Esterase Urine Negative (Negative); Nitrate Urine Negative (Negative); Protein Urine 1+ (Negative); Specific Gravity, Urine 1.029 (1.005-1.030); Urine Appearance Clear (CLEAR); Urine Color Dark Yellow (Yellow)
[2024-08-03 12:53] VITALS: RESP 18; O2SAT 92
[2024-08-03] MEDS: morphine 4 mg/mL SDV 1 mL IVP ×3 (12:53→18:23)
[2024-08-03 12:57] LABS: Add Urine Microscopic? YES; Bacteria Urine Trace /hpf; Hyaline Casts Urine 2.46 /lpf; WBC Urine 0-5 /hpf (0-5)
[2024-08-03 13:16] LABS: UA Slide Review UA Slide Review Perf
[2024-08-03] MEDS: iohexol 350 mg/mL 500 mL Btl (per mL) IV (13:33)
[2024-08-03 13:50] VITALS: BP 112/75; PULSE 61; O2SAT 96
--- NOTE | 2024-08-03 15:08 | P.CONIM_ITS ---
Providers/Reason For Consult 2 Consulting Physician/Specialty*: Dr. Powers general surgery Reason for Consult*: Small bowel obstruction with perforation. Primary Care Provider: SUSIE Holly History of Present Illness History of Present Illness Erin Aguilar is a 89 year old female with multiple comorbidities, obese, who had a Julian procedure about 10 years ago in [place]. Patient presents with a small bowel obstruction and a perforation in the right lower quadrant. Family at bedside. Patient reports ostomy bag last worked yesterday. Complains of right lower quadrant pain. Patient is on 2 L nasal cannula at home for pulmonary hypertension. She is also known to have heart disease and is on Xarelto. Abdomen is relatively benign with some tenderness over the right lower quadrant. Not peritonitic. Medications/Allergies Home Medications Medication Instructions Recorded Confirmed Last Taken Type Bariatric Wheelchair with foot #1 ea 11/30/23 08/03/24 Unknown Rx rests Hospital Bed Mattress #1 ea 11/30/23 08/03/24 Unknown Rx miscellaneous medical supply #1 ea 11/30/23 08/03/24 Unknown Rx Home oxygen #1 ea 01/26/24 08/03/24 Unknown Rx hydrocodone 10 mg-acetaminophen 1 tab PO QID PRN Pain 02/03/24 08/03/24 02/02/24 12:00 History 325 mg tablet pregabalin 100 mg capsule 100 mg PO BID 30 days #60 caps 04/20/24 08/03/24 Unknown Rx nitroglycerin 0.4 mg sublingual 0.4 mg buccal PRN PRN Chest Pain 05/14/24 08/03/24 Unknown History tablet amlodipine 10 mg tablet 5 mg (1/2 x 10 mg) PO DAILY #90 05/20/24 08/03/24 Unknown Rx tabs pantoprazole 40 mg tablet,delayed 40 mg PO DAILY #90 tabs 05/20/24 08/03/24 Unknown Rx release carbidopa 10 mg-levodopa 100 mg 2 tab PO BID 08/03/24 08/03/24 Unknown History tablet escitalopram oxalate 20 mg tablet 20 mg PO DAILY 08/03/24 08/03/24 Unknown History furosemide 20 mg tablet 20 mg PO DAILY 08/03/24 08/03/24 Unknown History metoprolol succinate 25 mg 25 mg PO DAILY 08/03/24 08/03/24 Unknown History tablet,extended release 24 hr mirtazapine 15 mg tablet 15 mg PO DAILY 08/03/24 08/03/24 Unknown History potassium chloride 10 mEq 10 meq PO DAILY 08/03/24 08/03/24 Unknown History tablet,extended release rivaroxaban 20 mg tablet (Xarelto) 20 mg PO DAILY 08/03/24 08/03/24 Unknown History Allergies Allergy/AdvReac Type Severity Reaction Status Date / Time azithromycin Allergy unknown Verified 05/14/24 10:40 Cephalosporins Allergy unknown Verified 05/14/24 10:40 PFSH Acute 2 PFSH: Medical History Conjunctivitis Elevated brain natriuretic peptide (BNP) level Bloating Shortness of breath Abdominal swelling Oxygen desaturation Hypoxia Splenic mass Postmenopausal bleeding Cervical cancer screening Influenza vaccine needed Pacemaker UTI symptoms Hearing loss Upper respiratory infection Essential hypertension DDD (degenerative disc disease), cervical Cellulitis Acute UTI (urinary tract infection) Left ankle sprain Yeast vaginitis Shakiness GERD (gastroesophageal reflux disease) Mixed hyperlipidemia Anemia Mental status alteration Vitamin D deficiency Fatigue UTI (urinary tract infection), bacterial Anxiety and depression Rotator cuff tear arthropathy of left shoulder Chronic anticoagulation Spinal stenosis Osteoporosis Essential hypertension Bladder wall thickening History of pulmonary embolism Intertrigo Abdominal hernia Splenic lesion Generalized weakness CVA (cerebrovascular accident) Polyneuropathy Surgical History S/P IVC filter S/P hernia repair S/P colostomy Family History Father CAD (coronary artery disease) Chronic kidney disease (CKD) Hypertension Mother CAD (coronary artery disease) Hypertension Brother CAD (coronary artery disease) Hypertension Family/Other CAD (coronary artery disease) Cancer Diabetes Hypertension Son Cancer CAD (coronary artery disease) Diabetes Hypertension Sister Cancer Diabetes Hypertension Lung disease Stroke Social History Smoking and tobacco/nicotine status: former use of tobacco/nicotine Alcohol intake: never Substance/Drug Use: current Substance/Drug use frequency: daily Other substance/drug use details: Pt is presciped it. Adopted: No Lives independently: No Household members: family and other Details: grandson Housing: House Current occupation: retired/disabled Vitals/I&O/Wt Last Vital Signs Temp 98.3 F 08/03/24 11:16 Pulse 61 08/03/24 13:50 Resp 18 08/03/24 12:53 BP 112/75 08/03/24 13:50 Pulse Ox 96 08/03/24 13:50 O2 Del Method Nasal Cannula 08/03/24 11:16 O2 Flow Rate 2 08/03/24 11:16 Weight last 48 hrs Weight 241 lb Physical Exam 2 Narrative: Chest: 2L NC tachypneic Heart: Regular rate and rhythm. Abdomen: Soft, tender RLQ, distended. Multiple surgical scars. End ostomy in LLQ is viable. Data 08/03/24 11:31 08/03/24 11:31 A&P Assessment and plan (1) Small bowel perforation: Plan 89-year-old female who presents with small bowel obstruction and perforated bowel. 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 I have discussed with the patient and the family at bedside that I do not think she will survive another exploratory laparotomy. I am concerned that she will have a frozen abdomen which will result in iatrogenic enterotomies. There is also risk of injuring the end colostomy among other complications. Patient and family have decided to pursue comfort care and hospice. Coding Level of Care Code 61641 Diagnoses Small bowel perforation K63.1 Time Spent (min) 30
--- NOTE | 2024-08-03 16:13 | PC.SOCIAL ---
CM called to ER for a patient needing Hospice, CM spoke to family and they had no preference of Hospice company, but was also questioning getting a second opinion. CM made doctors aware, and another doctor went and spoke to the family about outcomes of having ABD surgery at her age. They finally agreed to just go hospice. Frida with [facility] was notified and referral faxed to [facility] states they will accept. Concerns about medications was brought up, so comfort order meds were printed and CM ran them to in hospital pharmacy to fill, Pharmacy states they are going to bill Medicaid at this time since patient isnt established with hospice yet, but being admitted tonight. And they will deliver to ER 12. Nurse setting up medicaid stretcher ride for patient. And nurse and family were informed to call hospice when patient is picked up to let [facility] know that she has left facility.
[2024-08-03 17:00] VITALS: RESP 18; O2SAT 98
[2024-08-03 18:23] VITALS: RESP 20; O2SAT 94
== END 2024-08-03 18:56 | disposition home or self-care (01) ==
PROVIDERS: Emergency Provider Student in an Organized Health Care Education/Training Program; PCP Nurse Practitioner Family
DX: K56.50 Intestinal adhesions [bands], unspecified as to partial versus complete obstruction (principal); K63.1 Perforation of intestine (nontraumatic); Z51.5 Encounter for palliative care; Z87.891 Personal history of nicotine dependence; Z86.73 Personal history of transient ischemic attack (TIA), and cerebral infarction without residual deficits; I10 Essential (primary) hypertension; E78.5 Hyperlipidemia, unspecified
CPT/HCPCS: 36415; 74018; 74177; 80053; 81001; 83605; 85025; 96374; 96375; 96376; 99285; J2270; J3010